=== PATIENT | male | born 1945 | race Two or more races ===

== ENCOUNTER → 2016-11-09 | Outpatient (CLI) | payer MEDICARE ==
[~2016-11-09] MED LIST: AMLO-512 PO; ATOR20TA86 PO; LISI-662 PO; MONT10TA21 PO; TAMS0.4C32 PO
== END | disposition home or self-care (01) ==
LOC: RADPV 10:24
PROVIDERS: ATTEND Internal Medicine Critical Care Medicine
DX: J44.9 Chronic obstructive pulmonary disease, unspecified (principal); J98.4 Other disorders of lung
CPT/HCPCS: 71020

== ENCOUNTER → 2019-05-24 | Outpatient (CLI) | payer MEDICARE ==
[~2019-05-24] MED LIST changes: -AMLO-512 PO; +AMLO10TA7 PO; -ATOR20TA86 PO; +BUDE10.2 IH; +COMBISP IH; -TAMS0.4C32 PO
== END | disposition home or self-care (01) ==
LOC: RADPV 10:16
PROVIDERS: ATTEND Internal Medicine Critical Care Medicine
DX: R05 Cough (principal)

== ENCOUNTER → 2020-04-22 | Outpatient (CLI) | payer MEDICARE ==
[~2020-04-22] MED LIST changes: +AMLO-258 PO; -AMLO10TA7 PO; +MONT-35 PO; -MONT10TA21 PO
== END | disposition home or self-care (01) ==
LOC: RADMN 12:39
PROVIDERS: ATTEND Internal Medicine Critical Care Medicine
DX: J92.9 Pleural plaque without asbestos (principal); R07.81 Pleurodynia
CPT/HCPCS: 71046; 71046-TC